=== PATIENT | male | born 1940 | race Caucasian/White ===

== ENCOUNTER → 2020-05-09 11:39 | Outpatient (CLI) | payer OTHER, SELFPAY ==
--- NOTE | ~2020-05-09 | XR_ITS ---
XR lumbar spine 2-3V DATE: 05/09/2020 12:25 INDICATION: Low back pain TECHNIQUE: AP, lateral, coned lateral lumbosacral views COMPARISON: None FINDINGS: There is slight levoscoliosis of the lumbar spine. There is moderate anterior wedge compression fracture deformity of L1. No other fracture or any appar ent bone destruction is noted. The included lower thoracic and lumbar pedicles are intact. There is degenerative disc disease throughout the lumbar and lumbosacral spine, moderately severe at L1-2, L3-4 and L5-S1, moderate at L2-3 and L4-5. The sacroiliac joints are intact. IMPRESSION: Multilevel degenerative disc disease Reviewed, dictated and finalized at location B. IST INTERN
== END ==
PROVIDERS: Visit Provider Family Medicine
DX: M51.36 Other intervertebral disc degeneration, lumbar region (principal)
CPT/HCPCS: 72100

== ENCOUNTER → 2020-05-29 09:43 | Outpatient (CLI) | payer OTHER, SELFPAY ==
--- NOTE | ~2020-05-29 | XR_ITS ---
EXAMINATION: XR chest 2V DATE: 05/29/2020 09:52 INDICATION: Abnormal weight loss. TECHNIQUE: Frontal and lateral views of the chest were obtained. COMPARISON: Neck CT 08/31/2017 FINDINGS: The lungs are hyperexpanded with lucencies, consistent with emphysema. There is a 5 cm mass in left suprahilar region on the frontal radiograph. There is mild atelectasis versus scarring at ri ght lung base. No pleural effusion or pneumothorax. The heart size is normal. IMPRESSION: 1. 5 cm mass in left lung, consistent with primary bronchogenic carcinoma. Chest CT is recommended. I called this result to Dr. Ma on 05/29/20 at 10:08 AM. Reviewed, dictated and finalized at location B. AL AGENT IMPRESSION: 1. 5 cm mass in left lung, consistent with primary bronchogenic carcinoma. Ches t CT is recommended. I called this result to Dr. Ma on 05/29/20 at 10:08 A M.
== END ==
PROVIDERS: PCP Family Medicine; Visit Provider Family Medicine
DX: R63.4 Abnormal weight loss (principal)
CPT/HCPCS: 71046

== ENCOUNTER → 2020-06-02 10:13 | Outpatient (CLI) | payer OTHER, SELFPAY ==
--- NOTE | ~2020-06-02 | CT_ITS ---
EXAMINATION:CT chest w con DATE: 06/02/2020 10:50 INDICATION: Lung mass. Abnormal chest radiographs. TECHNIQUE: Computed tomography (CT) of the chest was performed with 75 mL Omnipaque 350 intravenous c ontrast. Automated exposure control and iterative reconstruction technique were employed. The dose-le ngth product (DLP) was 237.72 mGy-cm. COMPARISON: Chest 2 views 05/29/2020 FINDINGS: There is severe emphysema. There is mild atelectasis and scarring in the lungs. Calcified p ulmonary nodules and calcified hilar and mediastinal lymph nodes are consistent with old granulomatou s disease. There is a 6.3 x 4.9 cm mass in left lung upper lobe. No pleural effusion. The heart size is normal. There are coronary artery calcifications. No pericardial effusion. There is mild prevascul ar lymphadenopathy with the largest node measuring 1.2 x 2.1 cm. Calcifications in the liver and sple en are consistent with old granulomatous disease. There is a 1.7 cm cyst in the liver. There is a 1.7 cm cyst in left kidney. There is mild thoracic spondylosis. There is a chronic compression fracture of L1. IMPRESSION: 1. 6.3 x 4.9 cm mass in left lung upper lobe, consistent with primary bronchogenic carcinoma. CT-guid ed core needle biopsy is recommended if the patient is not on home oxygen. 2. Mild prevascular lymphadenopathy, consistent with metastatic disease. 3. Severe emphysema. Reviewed, dictated and finalized at location A. MDS COORDINATOR IMPRESSION: 1. 6.3 x 4.9 cm mass in left lung upper lobe, consistent with primary bronchoge jennifer carcinoma. CT-guided core needle biopsy is recommended if the patient is no t on home oxygen. 2. Mild prevascular lymphadenopathy, consistent with metastatic disease. 3. Severe emphysema.
[2020-06-03 13:04] LABS: Estimated Glomerular Filt Rate > 60
== END ==
PROVIDERS: PCP Family Medicine; Visit Provider Family Medicine
DX: R91.8 Other nonspecific abnormal finding of lung field (principal); J43.9 Emphysema, unspecified
CPT/HCPCS: 36415; 71260; 82565; Q9967